=== PATIENT | male | born 1960 | race Caucasian/White ===

== ENCOUNTER 2016-11-15 21:28 | Observation (INO) | payer BC ==
[~2016-11-15] VITALS: Ht 182.9 cm; Wt 134.2 kg
[~2016-11-15 21:28] MED LIST: ACTOS45 MG PO; AMARYL4 MG PO; ASPIR-LOW81 MG PO; ASPIRIN EC325 MG PO; ASPIRIN325 MG PO; Aldactone PO; Aspirin E.C. PO; BRILINTA90 MG PO; BYETTA 10 MCG SC; CARVEDILOL25 MG PO; CO Q-10200 MG PO; COZAAR50 MG PO; Coumadin,Jantoven PO; FUROSEMIDE40 MG PO; Feosol PO; GLUCOVANCE 51 TABLET PO; GLYBURID-METFO1 EACH PO; GLYBURIDE-METF1 EAC3 PO; GLYBURIDE5 MG PO; Glucovance 5/500 PO; HUMALOG100 UNIT/2 SC; HYDROCHLOROTHIA25 MG PO; Hyzaar 100-25 PO; JANUVIA100 MG PO; LANTUS 3 M100 UNITS/ SC; LANTUS 3 M100 UNITS1 SC; LIPITOR20 MG PO; LIPITOR40 MG PO; LOPRESSOR25 MG PO; LOSARTAN POTASS50 MG PO; NICOTINE PATCH1 EAC2 TD; NO HOME MEDS; Norvasc PO; OxyCONTIN PO; PANTOPRAZOLE SO40 MG PO; PRINIVIL20 MG PO; SPIRONOLACTONE25 MG PO; TOPROL XL100 MG PO; Toprol XL PO; UBIQUINOL100 MG PO; oxyCODONE PO
[2016-11-15 23:23] LABS: HEMATOCRIT 46.6 % (38.0-50.0); MCH 29.8 PG (29.0-34.0); MCHC 33.5 G/DL (30.0-36.0); MCV 89.1 FL (86-99); MEAN PLAT.VOLUME 9.5 uM^3 (9.0-12.4); PLATELET COUNT 162 K/uL (156-360); RBC DIS.WIDTH-CV 13.8 % (11.8-14.6); RED BLOOD COUNT 5.23 M/uL (4.00-5.50); WHITE BLOOD COUNT 7.9 K/uL (4.1-10.2)
[2016-11-15 23:34] LABS: CHLORIDE 104 mEq/L (99-109); POTASSIUM 4.4 mEq/L (3.7-5.4); SODIUM 141 mEq/L (136-147)
[2016-11-15 23:36] LABS: GLUCOSE 232 mg/dL (70-99)
[2016-11-15 23:38] LABS: ANION GAP 13 MEQ/L (2-14)
[2016-11-15 23:40] LABS: GFR ESTIMATE (CALCULATED) > 59 mL/min/
[2016-11-15 23:42] LABS: UREA NITROGEN (BUN) 23 mg/dL (9-23)
[2016-11-15 23:47] LABS: TROP-I INTERPRETATION NEGATIVE; TROPONIN-I 0.03 ng/mL (0.0-0.30)
[2016-11-16] MEDS ORDERED: CARVEDILOL12.5 MG PO (00:37)
[2016-11-16] MEDS ORDERED: EPLERENONE25 MG PO (00:39)
[2016-11-16] MEDS ORDERED: POTASSIUM CHLO20 ME1 PO (00:45)
[2016-11-16] MEDS ORDERED: JARDIANCE25 MG PO (00:47)
[2016-11-16] MEDS ORDERED: VIAGRA100 MG PO (00:50)
[2016-11-16 02:03] VITALS: BP 130/71
[2016-11-16 02:25] LABS: POINT-OF-CARE METER ID UU13113831
[2016-11-16 05:24] LABS: HEMATOCRIT 46.9 % (38.0-50.0); MCH 29.2 PG (29.0-34.0); MCHC 32.6 G/DL (30.0-36.0); MCV 89.5 FL (86-99); MEAN PLAT.VOLUME 8.9 uM^3 (9.0-12.4); PLATELET COUNT 158 K/uL (156-360); RBC DIS.WIDTH-CV 13.9 % (11.8-14.6); RED BLOOD COUNT 5.24 M/uL (4.00-5.50); WHITE BLOOD COUNT 7.1 K/uL (4.1-10.2)
[2016-11-16 05:51] LABS: TROP-I INTERPRETATION NEGATIVE; TROPONIN-I 0.03 ng/mL (0.0-0.30)
[2016-11-16 05:53] LABS: ANION GAP 9 MEQ/L (2-14); CHLORIDE 104 MEQ/L (99-109); GFR ESTIMATE (CALCULATED) > 59 mL/min/; GLUCOSE 162 mg/dL (70-99); POTASSIUM 3.9 MEQ/L (3.7-5.4); SAMPLE HEMOLYSIS CHECK 0; SAMPLE ICTERIC CHECK 0; SAMPLE LIPEMIA CHECK 0; SODIUM 139 MEQ/L (136-147); UREA NITROGEN (BUN) 22 mg/dL (9-23)
[2016-11-16 08:03] LABS: POINT-OF-CARE METER ID UU14162513
[2016-11-16 11:15] LABS: POINT-OF-CARE METER ID UU13113700
[2016-11-16 12:24] VITALS: BP 104/54
[2016-11-16 12:25] LABS: TROP-I INTERPRETATION NEGATIVE; TROPONIN-I 0.02 ng/mL (0.0-0.30)
[2016-11-16] MEDS ORDERED: LASIX20 MG PO (14:26)
== END 2016-11-16 13:42 | disposition home or self-care (01) ==
LOC: EME 21:28 → EDOF 11-16 00:55 → ENRESERV 11-16 00:56 → 5WEST 11-16 01:54
PROVIDERS: Emergency Medicine; Hospitalist
DX: R07.9 Chest pain, unspecified (principal); R06.02 Shortness of breath; I25.10 Atherosclerotic heart disease of native coronary artery without angina pectoris; I11.0 Hypertensive heart disease with heart failure; I50.9 Heart failure, unspecified; Z95.810 Presence of automatic (implantable) cardiac defibrillator; E11.65 Type 2 diabetes mellitus with hyperglycemia; T50.1X6A Underdosing of loop [high-ceiling] diuretics, initial encounter; Z91.14 Patient's other noncompliance with medication regimen; Z91.19 Patient's noncompliance with other medical treatment and regimen; I25.5 Ischemic cardiomyopathy; Z95.5 Presence of coronary angioplasty implant and graft; Z95.1 Presence of aortocoronary bypass graft; E78.5 Hyperlipidemia, unspecified; E66.01 Morbid (severe) obesity due to excess calories; Z68.41 Body mass index [BMI] 40.0-44.9, adult; Z86.19 Personal history of other infectious and parasitic diseases; G47.33 Obstructive sleep apnea (adult) (pediatric); Z96.642 Presence of left artificial hip joint; Z88.8 Allergy status to other drugs, medicaments and biological substances; Z87.891 Personal history of nicotine dependence; Z82.49 Family history of ischemic heart disease and other diseases of the circulatory system; Z83.3 Family history of diabetes mellitus; K21.9 Gastro-esophageal reflux disease without esophagitis; Z79.4 Long term (current) use of insulin; Z79.82 Long term (current) use of aspirin
CPT/HCPCS: 71020; 80048; 82948; 83880; 84484; 85027; 93005; 99281; 99285; G0378; J1644; J1815; J1940

== ENCOUNTER 2017-04-24 15:17 | Emergency (ER) | payer BC ==
[~2017-04-24] VITALS: Ht 185.4 cm; Wt 136.0 kg
[~2017-04-24 15:17] MED LIST changes: +CARVEDILOL12.5 MG PO; +EPLERENONE25 MG PO; +JARDIANCE25 MG PO; +LASIX20 MG PO; +POTASSIUM CHLO20 ME1 PO; +VIAGRA100 MG PO
[2017-04-24 18:10] VITALS: BP 136/71
== END 2017-04-24 18:11 | disposition home or self-care (01) ==
LOC: EME 15:17
PROC: 0HQGXZZ Repair Left Hand Skin, External Approach (ICD-10-PCS; principal; 2017-04-24)
PROC: 3E0234Z Introduction of Serum, Toxoid and Vaccine into Muscle, Percutaneous Approach (ICD-10-PCS; 2017-04-24)
DX: S61.012A Laceration without foreign body of left thumb without damage to nail, initial encounter (principal); W31.2XXA Contact with powered woodworking and forming machines, initial encounter; M18.12 Unilateral primary osteoarthritis of first carpometacarpal joint, left hand; Z23 Encounter for immunization; Z88.8 Allergy status to other drugs, medicaments and biological substances
CPT/HCPCS: 73140; 99281; 99284; S0020